=== PATIENT | male | born 1990 | race Caucasian/White ===

== ENCOUNTER 2019-02-17 09:37 | Emergency (ER) | payer OTHER ==
[~2019-02-17] VITALS: Ht 180.3 cm; Wt 109.1 kg
[2019-02-17] MEDS ORDERED: IBUP-2271 PO (09:48)
[2019-02-17] MEDS ORDERED: POVIDONE-IODINE 10% 15 ML SOLUTION UD TP ONE (12:30)
[2019-02-17] MEDS ORDERED: ACETAMINOPHEN 500 MG TABLET PO ONE (12:30)
[2019-02-17] MEDS ORDERED: LIDOCAINE 1% 10 ML VIAL INJ ONE (12:30)
[2019-02-17] MEDS ORDERED: KETOROLAC TROMETHAMINE 30 MG/ML VIAL IM ONE (12:45)
[2019-02-17 13:00] VITALS: BP 118/74
== END 2019-02-17 13:30 | disposition home or self-care (01) ==
LOC: EMS 09:40
DX: L02.214 Cutaneous abscess of groin (principal); Z88.1 Allergy status to other antibiotic agents
CPT/HCPCS: 10060; 96372; 99283; J1885; J3490